=== PATIENT | female | born 1970 | race Caucasian/White ===

== ENCOUNTER 2017-04-29 09:28 | Emergency (ER) | payer BC ==
[~2017-04-29] VITALS: Ht 152.4 cm; Wt 73.0 kg
[2017-04-29 11:20] LABS: UA SPECIFIC GRAVITY >=1.030 (1.005-1.035); microscopic required? YES; urine erythrocyte 1+ (NEGATIVE)
[2017-04-29 11:42] LABS: BASOPHIL % 0.1 % (0-2); PLATELET COUNT 206 x10^3mcL (130-400)
[2017-04-29 11:45] LABS: RED CELL DISTRIBUTION WIDTH 18.1 % (11.5-14.5)
[2017-04-29 12:20] LABS: CK-MB < 0.5 ng/mL (0-3.6); CREATINE KINASE 51 U/L (26-192)
[2017-04-29 12:21] LABS: CALCIUM 8.3 mg/dL (8.5-10.1); CHLORIDE SERUM 101 mmol/L (98-107); CREATININE SERUM 0.7 mg/dL (0.6-1.0); GFR1 > 60 mL/min; GLUCOSE SERUM 106 mg/dL (74-106); SODIUM SERUM 135 mmol/L (136-145)
[2017-04-29 12:27] LABS: ERYTHROCYTE SED RATE 33 mm/hr (0-20)
[2017-04-29 12:32] LABS: ALKALINE PHOSPHATASE 86 U/L (46-116); ALT/SGPT 21 U/L (14-59); AST/SGOT 18 U/L (15-37); BILIRUBIN TOTAL 0.3 mg/dL (0.20-1.00); TOTAL PROTEIN, SERUM 7.7 g/dL (6.4-8.2)
[2017-04-29 12:34] LABS: ALBUMIN 3.1 g/dL (3.4-5.0)
[2017-04-29 12:37] LABS: T3 TOTAL 0.78 ng/mL
[2017-04-29 12:41] LABS: FREE T4 1.44 ng/dL (0.76-1.46); FREE THYROXINE INDEX 4.2 ug/dL (1.4-4.5); T4(THYROXINE) 10.5 ug/dL (4.7-13.3)
[2017-04-29 13:21] LABS: C REACTIVE PROTEIN 20.4 mg/dL (<=0.9)
[2017-04-29 15:22] VITALS: BP 110/63
== END 2017-04-29 15:23 | disposition home or self-care (01) ==
LOC: ED 09:28
PROVIDERS: Specialist
DX: R19.7 Diarrhea, unspecified (principal); E87.6 Hypokalemia; M54.5 Low back pain; Z88.1 Allergy status to other antibiotic agents
CPT/HCPCS: 83880; 84439; J2405; J3490; J7030; J7040

== ENCOUNTER 2018-11-21 13:24 | Emergency (ER) | payer BC ==
[~2018-11-21] VITALS: Ht 152.4 cm; Wt 74.8 kg
[2018-11-21 13:31] VITALS: Ht 152.4 cm; Wt 74.8 kg
[2018-11-21 14:24] VITALS: BP 132/61
== END 2018-11-21 14:24 | disposition home or self-care (01) ==
LOC: ED 13:24
DX: S16.1XXA Strain of muscle, fascia and tendon at neck level, initial encounter (principal); S83.92XA Sprain of unspecified site of left knee, initial encounter; M79.652 Pain in left thigh; Z88.1 Allergy status to other antibiotic agents; Z88.2 Allergy status to sulfonamides; V49.9XXA Car occupant (driver) (passenger) injured in unspecified traffic accident, initial encounter; Y93.I9 Activity, other involving external motion; Y92.413 State road as the place of occurrence of the external cause; Y99.8 Other external cause status